=== PATIENT | female | born 1995 | race Hispanic/Latino ===

== ENCOUNTER 2021-04-15 11:01 | Emergency (ER) | payer BC, OTHER ==
[~2021-04-15] VITALS: Ht 152.4 cm; Wt 63.5 kg
[2021-04-15 11:07] VITALS: BP 135/89
== END 2021-04-15 12:50 | disposition home or self-care (01) ==
LOC: EDH 11:01
DX: S00.451A Superficial foreign body of right ear, initial encounter (principal); X58.XXXA Exposure to other specified factors, initial encounter; Y93.89 Activity, other specified; Y92.89 Other specified places as the place of occurrence of the external cause; Y99.8 Other external cause status